=== PATIENT | female | born 1995 | race Asian ===

== ENCOUNTER 2017-12-11 19:16 | Emergency (ER) | payer OTHER ==
[2017-12-11 20:54] LABS: ADD MAN DIFF? NO
[2017-12-11 21:00] LABS: AGAP ISTAT 16 mmol/L (6-14); BUN ISTAT 12 mg/dL (8-26); CHLORIDE ISTAT 107 mmol/L (98-110); CREATININE ISTAT 0.7 mg/dL (0.5-1.4); GLUCOSE ISTAT 85 mg/dL (70-99); HEMATOCRIT ISTAT 42 % (36-40); HEMOGLOBIN ISTAT 14.3 g/dL (12-15); ION CA ISTAT 1.12 mmol/L (1.13-1.32); POTASSIUM ISTAT 3.8 mmol/L (3.5-5.0); SODIUM ISTAT 142 mmol/L (135-145); TOT CO2 ISTAT 24 mmol/L (23-32)
[2017-12-11] MEDS ORDERED: CONTRAST GIVEN MC (21:00)
[2017-12-11 21:02] LABS: BASO % 1 % (0-3); EOS # 0.2 x10^3/uL (0.0-0.7); EOS % 3 % (0-3); HEMATOCRIT 43.6 % (36.0-47.0); HEMOGLOBIN 14.4 g/dL (12.0-15.5); LYMPH # 2.3 x10^3/uL (1.0-4.8); LYMPH % 30 % (24-48); MEAN CORPUSCULAR HEMOGLOBIN 29 pg (25-35); MEAN CORPUSCULAR HGB CONC 33 g/dL (31-37); MEAN CORPUSCULAR VOLUME 88 fL (79-100); MONO # 0.4 x10^3/uL (0.0-1.1); MONO % 5 % (0-9); NEUT # 4.7 x10^3uL (1.8-7.7); NEUT % 61 % (31-73); PLATELET COUNT 275 x10^3/uL (140-400); RED BLOOD COUNT 4.94 x10^6/uL (3.50-5.40); RED CELL DISTRIBUTION WIDTH 13.4 % (11.5-14.5); WHITE BLOOD COUNT 7.7 x10^3/uL (4.0-11.0)
[2017-12-11 21:06] LABS: NEG OBC SER NEG; POS OBC SER POS; PREG TEST PT QUAL NEGATIVE (NEG)
[2017-12-11 21:07] LABS: PROTHROMBIN TIME PATIENT 12.3 SEC (11.7-14.0)
[2017-12-11 21:08] LABS: PARTIAL THROMBOPLASTIN TIME 30 SEC (24-38)
[2017-12-11] MEDS: IOHEXOL 300 MG/ML 100ML VIAL. IV (21:35)
[2017-12-11] MEDS: IBUPROFEN 600 MG TABLET. PO (22:40)
[2017-12-11] MEDS: CYCLOBENZAPRINE 10 MG TABLET. PO (22:40)
== END 2017-12-11 22:52 | disposition home or self-care (01) ==
LOC: ER 19:16
DX: S16.1XXA Strain of muscle, fascia and tendon at neck level, initial encounter (principal); S83.91XA Sprain of unspecified site of right knee, initial encounter; S83.92XA Sprain of unspecified site of left knee, initial encounter; S09.90XA Unspecified injury of head, initial encounter; M79.642 Pain in left hand; M25.522 Pain in left elbow; M25.512 Pain in left shoulder; M54.5 Low back pain; M54.6 Pain in thoracic spine; M41.9 Scoliosis, unspecified; V43.52XA Car driver injured in collision with other type car in traffic accident, initial encounter; Y93.I9 Activity, other involving external motion; Y92.410 Unspecified street and highway as the place of occurrence of the external cause; Y99.8 Other external cause status
CPT/HCPCS: 36415; 70450; 70498; 72125; 72128; 72131; 73030; 73080; 73130; 73562; 80047; 84703; 85025; 85610; 85730; 99285-25; Q9967